=== PATIENT | male | born 1970 | race Hispanic/Latino ===

== ENCOUNTER 2020-10-01 15:09 | Emergency (ER) | payer SELFPAY ==
[~2020-10-01] VITALS: Ht 167.6 cm; Wt 113.6 kg
[2020-10-01] MEDS ORDERED: PREDNISONE20 MG PO (16:57)
[2020-10-01] MEDS ORDERED: BENADRYL 50MG C50 MG PO (16:57)
[2020-10-01] MEDS ORDERED: PEPCID20 MG PO (16:57)
[2020-10-01 17:30] VITALS: BP 158/77
== END 2020-10-01 17:30 | disposition home or self-care (01) | DRG 918 ==
LOC: ED 15:09
DX: T63.461A Toxic effect of venom of wasps, accidental (unintentional), initial encounter (principal); I10 Essential (primary) hypertension

== ENCOUNTER 2020-10-04 18:08 | Emergency (ER) | payer SELFPAY ==
[~2020-10-04] VITALS: Ht 167.6 cm; Wt 100.0 kg
[~2020-10-04 18:08] MED LIST: BENADRYL 50MG C50 MG PO; PEPCID20 MG PO; PREDNISONE20 MG PO
[2020-10-04] MEDS ORDERED: METOPROLOL100 M1 PO (20:04)
[2020-10-04 20:26] LABS: ALBUMIN 3.8 g/dL (3.2-5.0); ALKALINE PHOSPHATASE 133 u/l (38-126); ANION GAP 12 (6-22 (CALC)); BILIRUBIN, TOTAL 0.3 mg/dL (0.0-1.4); BUN 21 mg/dL (9-20); BUN/CREATININE RATIO 19 (12-20 (CALC)); CARBON DIOXIDE 27 mmol/l (22-30); CHLORIDE 104 mmol/l (95-108); CREATININE 1.1 mg/dL (0.7-1.3); GFR > 60 ML/MIN (>=60 (CALC)); GFR FOR AFR.AMER. > 60 ML/MIN (>=60 (CALC)); POTASSIUM 3.9 mmol/l (3.5-5.1); SGOT/AST 31 u/l (17-59); SODIUM 138 mmol/l (137-146); TOTAL PROTEIN 6.9 g/dL (6.3-8.2)
[2020-10-04 20:28] LABS: HEMATOCRIT 43.1 % (39.0-50.0); HEMOGLOBIN 14.1 g/dl (14.0-18.0); MEAN CELL VOLUME 87.8 fL CALC (80.0-100.0); MEAN CORPUSCULAR HGB 28.7 pG CALC (26.0-32.0); RED BLOOD COUNT 4.91 mill/uL (4.70-6.10)
[2020-10-04 20:29] LABS: BASO% 0 % (0-3); EOS% 0 % (0-8); LYMPH% 35 % (15-41); MEAN CORPUSCULAR HGB CONC 32.7 g/dL CAL (32.0-36.0); MONO% 8 % (2-13); NEUT% 57 % (42-76); PLATELET COUNT 182 thou/uL (130-400); RED CELL DISTRI WIDTH 12.9 % (11.5-15.5)
[2020-10-04 20:38] LABS: MYOGLOBIN 51 ng/mL (0 - 121)
[2020-10-04 20:58] LABS: URINE BILIRUBIN - DIPSTICK NEGATIVE (NEGATIVE); URINE BLOOD DIPSTICK NEGATIVE (NEGATIVE); URINE COLOR YELLOW; URINE GLUCOSE - DIPSTICK NEGATIVE (NEGATIVE); URINE KETONE NEGATIVE (NEGATIVE); URINE LEUK ESTERASE NEGATIVE (NEGATIVE); URINE NITRITE - DIPSTICK NEGATIVE (Negative); URINE PH 5.5 (4.5-8.0); URINE PROTEIN - DIPSTICK NEGATIVE (NEG-TRACE); URINE SPECIFIC GRAVITY 1.025; URINE UROBILINOGEN - DIPSTICK 0.2 E.U./dL (0.2)
[2020-10-04 21:49] VITALS: BP 165/70
== END 2020-10-04 21:31 | disposition left against medical advice (07) | DRG 918 ==
LOC: ED 18:08
PROVIDERS: Emergency Medicine
DX: T63.461A Toxic effect of venom of wasps, accidental (unintentional), initial encounter (principal); R94.31 Abnormal electrocardiogram [ECG] [EKG]; I10 Essential (primary) hypertension; Z91.19 Patient's noncompliance with other medical treatment and regimen

== ENCOUNTER 2020-10-22 19:23 | Emergency (ER) | payer SELFPAY ==
[~2020-10-22] VITALS: Ht 167.6 cm; Wt 116.0 kg
[~2020-10-22 19:23] MED LIST changes: +METOPROLOL100 M1 PO
[2020-10-22] MEDS ORDERED: FISH OIL1000 MG PO (19:46)
[2020-10-22] MEDS ORDERED: OMEPRAZOLE10 MG PO (19:46)
[2020-10-22] MEDS ORDERED: NAPROXEN250 MG PO (19:50)
[2020-10-22] MEDS ORDERED: PREDNISONE1 MG PO (19:51)
[2020-10-22] MEDS ORDERED: MITIGARE0.6 MG PO (20:34)
[2020-10-22 20:40] VITALS: BP 165/71
== END 2020-10-22 21:16 | disposition home or self-care (01) | DRG 554 ==
LOC: ED 19:23
DX: M10.9 Gout, unspecified (principal); I10 Essential (primary) hypertension; K21.9 Gastro-esophageal reflux disease without esophagitis; Z87.11 Personal history of peptic ulcer disease

== ENCOUNTER 2020-10-23 02:51 | Observation (INO) | payer SELFPAY ==
[~2020-10-23] VITALS: Ht 167.6 cm; Wt 114.0 kg
[~2020-10-23 02:51] MED LIST changes: +FISH OIL1000 MG PO; +MITIGARE0.6 MG PO; +NAPROXEN250 MG PO; +OMEPRAZOLE10 MG PO; +PREDNISONE1 MG PO
--- NOTE | 2020-10-23 02:55 | NUR ---
PT AMBULATORY FROM WR TO EX 12. NAD.
[2020-10-23 03:32] LABS: HEMATOCRIT 44.5 % (39.0-50.0); HEMOGLOBIN 14.2 g/dl (14.0-18.0); IMMATURE GRANULOCYTES 1.2 % (0.0-5.0); MEAN CELL VOLUME 86.4 fL CALC (80.0-100.0); MEAN CORPUSCULAR HGB 27.6 pG CALC (26.0-32.0); MEAN CORPUSCULAR HGB CONC 31.9 g/dL CAL (32.0-36.0); NEUT# 8.65 thou/uL (1.82-7.42); RED BLOOD COUNT 5.15 mill/uL (4.70-6.10); RED CELL DISTRI WIDTH 13.5 % (11.5-15.5)
[2020-10-23 03:39] LABS: ALBUMIN 4.1 g/dL (3.2-5.0); ALKALINE PHOSPHATASE 189 u/l (38-126); AMYLASE 52 u/l (30-110); ANION GAP 14 (6-22 (CALC)); BILIRUBIN, TOTAL 0.3 mg/dL (0.0-1.4); BUN 14 mg/dL (9-20); BUN/CREATININE RATIO 12 (12-20 (CALC)); CARBON DIOXIDE 26 mmol/l (22-30); CHLORIDE 104 mmol/l (95-108); CREATININE 1.1 mg/dL (0.7-1.3); GFR > 60 ML/MIN (>=60 (CALC)); GFR FOR AFR.AMER. > 60 ML/MIN (>=60 (CALC)); LIPASE 106 u/l (23-300); POTASSIUM 4.6 mmol/l (3.5-5.1); SGOT/AST 26 u/l (17-59); SODIUM 138 mmol/l (137-146)
[2020-10-23 03:45] LABS: URINE BILIRUBIN - DIPSTICK NEGATIVE (NEGATIVE); URINE BLOOD DIPSTICK NEGATIVE (NEGATIVE); URINE COLOR YELLOW; URINE GLUCOSE - DIPSTICK >=1000 mg/dL (NEGATIVE); URINE KETONE TRACE mg/dL (NEGATIVE); URINE LEUK ESTERASE NEGATIVE (NEGATIVE); URINE NITRITE - DIPSTICK NEGATIVE (Negative); URINE PH 6.5 (4.5-8.0); URINE PROTEIN - DIPSTICK NEGATIVE (NEG-TRACE); URINE SPECIFIC GRAVITY 1.015; URINE UROBILINOGEN - DIPSTICK 0.2 E.U./dL (0.2)
--- NOTE | 2020-10-23 03:47 | NUR ---
W/P/D SKIN SR NO ST T CHANGES NO ECTOPY S/S RESOLVED INSIDE UPHOLSTERER TO ER.
[2020-10-23 03:51] LABS: MYOGLOBIN 43 ng/mL (0 - 121)
--- NOTE | 2020-10-23 04:00 | NUR ---
SR NO ST T CHANGES NO ECTOPY W/P/D SKIN NO C/O PAIN FROM ANY SOURCE.NO SWEATS NO NAUSEA OR REGURG S/S
--- NOTE | 2020-10-23 05:01 | NUR ---
ASLEEP W/P/D SKIN SR NO ST T CHANGES NO ECTOPY.
--- NOTE | 2020-10-23 06:18 | NUR ---
W/P/D SKIN NO CP NO NAUSEA SR NO ST T CHANGES NO ECTOPY
--- NOTE | 2020-10-23 06:35 | NUR ---
PHONE REPORT TO NURSE CURRY ON MS
--- NOTE | 2020-10-23 06:40 | NUR ---
PT TRANSPORTED TO [place] RM 277 VIA IN STABLE CONDITION
--- NOTE | 2020-10-23 06:49 | NUR ---
RECEIVED REPORT FROM AG IN ER @ 1465, PT ARRIVED TO UNIT @ 0647 VIA WHEELCHAIR IN STABLE CONDITION WITH NO S/SX OF DISTRESS OBSERVED.
[2020-10-23 07:48] VITALS: BP 185/87
[2020-10-23 10:37] VITALS: BP 185/87
--- NOTE | 2020-10-23 14:00 | NUR ---
PATIENT D/C AT THIS TIME. PATIENT VERBALIZES UNDERSTANDING OF D/C INSTRUCTIONS AT THIS TIME. DENIES ANY NEEDS. ADVISED TO F/U WITH PROVIDER IN 1 WEEK AND CONTINUE HOME MEDS.
--- NOTE | 2020-10-23 14:09 | NUR ---
Discharge instructions given. Patient verbalizes understanding of same. Discharged in condition via Wheelchair to Home with *Other. All belongings sent with pt.
== END 2020-10-23 14:10 | disposition home or self-care (01) | DRG 313 ==
LOC: ED 02:51 → ED-I 05:52 → ED 06:05 → MS2 06:06
PROVIDERS: Emergency Medicine; ADMIT Internal Medicine; ATTEND Internal Medicine
DX: R07.2 Precordial pain (principal); R94.31 Abnormal electrocardiogram [ECG] [EKG]; I10 Essential (primary) hypertension; K21.9 Gastro-esophageal reflux disease without esophagitis; K29.60 Other gastritis without bleeding; R73.03 Prediabetes; M10.9 Gout, unspecified; Z87.11 Personal history of peptic ulcer disease; Z79.1 Long term (current) use of non-steroidal anti-inflammatories (NSAID); Z79.899 Other long term (current) drug therapy; Z20.828 Contact with and (suspected) exposure to other viral communicable diseases
CPT/HCPCS: G0378; S0164

== ENCOUNTER 2020-10-28 20:29 | Emergency (ER) | payer SELFPAY ==
[~2020-10-28] VITALS: Ht 167.6 cm; Wt 113.0 kg
[2020-10-28] MEDS ORDERED: ASPIRIN81 MG PO (20:45)
[2020-10-28] MEDS ORDERED: LISINOPRIL20 MG PO (20:45)
[2020-10-28] MEDS ORDERED: HYDROCHLOROTH12.5 MG PO (20:46)
[2020-10-28 21:38] LABS: HEMATOCRIT 45.9 % (39.0-50.0); HEMOGLOBIN 14.8 g/dl (14.0-18.0); IMMATURE GRANULOCYTES 1.4 % (0.0-5.0); MEAN CELL VOLUME 86.6 fL CALC (80.0-100.0); MEAN CORPUSCULAR HGB 27.9 pG CALC (26.0-32.0); MEAN CORPUSCULAR HGB CONC 32.2 g/dL CAL (32.0-36.0); NEUT# 5.91 thou/uL (1.82-7.42); RED BLOOD COUNT 5.3 mill/uL (4.70-6.10); RED CELL DISTRI WIDTH 14.2 % (11.5-15.5)
[2020-10-28 21:40] LABS: ALBUMIN 4.2 g/dL (3.2-5.0); CREATININE 1.5 mg/dL (0.7-1.3); POTASSIUM 4.2 mmol/l (3.5-5.1); TOTAL PROTEIN 7.2 g/dL (6.3-8.2)
[2020-10-28 21:44] LABS: BILIRUBIN, TOTAL 0.7 mg/dL (0.0-1.4)
[2020-10-28] MEDS ORDERED: COLCHICINE0.6 M2 PO (21:57)
[2020-10-28 22:04] VITALS: BP 101/67
== END 2020-10-28 22:04 | disposition home or self-care (01) | DRG 305 ==
LOC: ED 20:29
PROVIDERS: Family Medicine
DX: I10 Essential (primary) hypertension (principal); R94.31 Abnormal electrocardiogram [ECG] [EKG]; M10.9 Gout, unspecified; R73.03 Prediabetes; K21.9 Gastro-esophageal reflux disease without esophagitis; Z87.11 Personal history of peptic ulcer disease

== ENCOUNTER 2020-11-08 19:46 | Emergency (ER) | payer SELFPAY ==
[~2020-11-08] VITALS: Ht 167.6 cm; Wt 112.0 kg
[~2020-11-08 19:46] MED LIST changes: +ASPIRIN81 MG PO; +COLCHICINE0.6 M2 PO; +HYDROCHLOROTH12.5 MG PO; +LISINOPRIL20 MG PO
[2020-11-08 20:57] LABS: HEMATOCRIT 43.5 % (39.0-50.0); IMMATURE GRANULOCYTES 1.6 % (0.0-5.0); MEAN CELL VOLUME 86.8 fL CALC (80.0-100.0); MEAN CORPUSCULAR HGB 27.9 pG CALC (26.0-32.0); MEAN CORPUSCULAR HGB CONC 32.2 g/dL CAL (32.0-36.0); NEUT# 4.81 thou/uL (1.82-7.42); RED BLOOD COUNT 5.01 mill/uL (4.70-6.10); RED CELL DISTRI WIDTH 13.7 % (11.5-15.5)
[2020-11-08 21:13] LABS: ALKALINE PHOSPHATASE 141 u/l (38-126); ANION GAP 11 (6-22 (CALC)); BUN 26 mg/dL (9-20); BUN/CREATININE RATIO 18 (12-20 (CALC)); CARBON DIOXIDE 27 mmol/l (22-30); CHLORIDE 104 mmol/l (95-108); CREATININE 1.5 mg/dL (0.7-1.3); GFR 50 ML/MIN (>=60 (CALC)); GFR FOR AFR.AMER. 60 ML/MIN (>=60 (CALC)); POTASSIUM 3.9 mmol/l (3.5-5.1); SGOT/AST 32 u/l (17-59); SODIUM 138 mmol/l (137-146); TOTAL PROTEIN 7.1 g/dL (6.3-8.2)
[2020-11-08 21:19] LABS: BILIRUBIN, TOTAL 0.3 mg/dL (0.0-1.4)
[2020-11-08 21:25] LABS: MYOGLOBIN 90 ng/mL (0 - 121)
[2020-11-08 21:55] VITALS: BP 128/66
== END 2020-11-08 21:55 | disposition home or self-care (01) | DRG 880 ==
LOC: ED 19:46
PROVIDERS: Emergency Medicine
DX: F41.9 Anxiety disorder, unspecified (principal); R94.31 Abnormal electrocardiogram [ECG] [EKG]; N28.9 Disorder of kidney and ureter, unspecified; T50.2X5A Adverse effect of carbonic-anhydrase inhibitors, benzothiadiazides and other diuretics, initial encounter; I10 Essential (primary) hypertension; R73.03 Prediabetes; M10.9 Gout, unspecified; K21.9 Gastro-esophageal reflux disease without esophagitis; Z87.11 Personal history of peptic ulcer disease

== ENCOUNTER 2020-11-19 08:32 | Emergency (ER) | payer SELFPAY ==
[~2020-11-19] VITALS: Ht 167.6 cm; Wt 100.0 kg
[2020-11-19 09:18] VITALS: BP 154/68
== END 2020-11-19 09:18 | disposition home or self-care (01) | DRG 880 ==
LOC: ED 08:32
DX: F41.9 Anxiety disorder, unspecified (principal); I10 Essential (primary) hypertension; R73.03 Prediabetes; M10.9 Gout, unspecified; K21.9 Gastro-esophageal reflux disease without esophagitis; Z87.11 Personal history of peptic ulcer disease

== ENCOUNTER 2020-11-20 06:39 | Emergency (ER) | payer SELFPAY ==
[~2020-11-20] VITALS: Ht 167.6 cm; Wt 110.0 kg
[2020-11-20 07:28] VITALS: BP 144/76
== END 2020-11-20 07:32 | disposition home or self-care (01) | DRG 880 ==
LOC: ED 06:39
DX: F41.9 Anxiety disorder, unspecified (principal); I10 Essential (primary) hypertension; R73.03 Prediabetes; M10.9 Gout, unspecified; K21.9 Gastro-esophageal reflux disease without esophagitis; Z87.11 Personal history of peptic ulcer disease

== ENCOUNTER 2020-11-22 19:39 | Emergency (ER) | payer SELFPAY ==
[~2020-11-22] VITALS: Ht 167.6 cm; Wt 112.0 kg
[2020-11-22] MEDS ORDERED: OMEPRAZOLE DR40 MG PO (20:41)
[2020-11-22 20:56] VITALS: BP 112/87
== END 2020-11-22 20:56 | disposition home or self-care (01) | DRG 880 ==
LOC: ED 19:39
DX: F41.9 Anxiety disorder, unspecified (principal); I10 Essential (primary) hypertension; R73.03 Prediabetes; M10.9 Gout, unspecified; K21.9 Gastro-esophageal reflux disease without esophagitis; Z87.11 Personal history of peptic ulcer disease

== ENCOUNTER 2020-12-30 02:07 | Emergency (ER) | payer SELFPAY ==
[~2020-12-30 02:07] MED LIST changes: +OMEPRAZOLE DR40 MG PO
== END 2020-12-30 02:53 | disposition left against medical advice (07) | DRG 951 ==
LOC: ED 02:07 → LWOBS 02:33
DX: Z53.21 Procedure and treatment not carried out due to patient leaving prior to being seen by health care provider (principal)

== ENCOUNTER 2021-01-04 03:08 | Emergency (ER) | payer SELFPAY ==
[~2021-01-04] VITALS: Ht 167.6 cm; Wt 104.5 kg
[2021-01-04 03:25] VITALS: BP 165/86
== END 2021-01-04 04:42 | disposition left against medical advice (07) | DRG 153 ==
LOC: ED 03:08
DX: J02.9 Acute pharyngitis, unspecified (principal); I10 Essential (primary) hypertension; R73.03 Prediabetes; M10.9 Gout, unspecified; K21.9 Gastro-esophageal reflux disease without esophagitis; Z87.11 Personal history of peptic ulcer disease; Z20.822 Contact with and (suspected) exposure to COVID-19

== ENCOUNTER 2021-01-12 04:53 | Emergency (ER) | payer SELFPAY ==
[~2021-01-12] VITALS: Ht 167.6 cm; Wt 113.0 kg
[2021-01-12 05:40] VITALS: BP 134/81
== END 2021-01-12 05:40 | disposition home or self-care (01) | DRG 392 ==
LOC: ED 04:53
DX: R11.2 Nausea with vomiting, unspecified (principal); F41.9 Anxiety disorder, unspecified; K29.70 Gastritis, unspecified, without bleeding; K21.9 Gastro-esophageal reflux disease without esophagitis; I10 Essential (primary) hypertension; M10.9 Gout, unspecified; R73.03 Prediabetes; Z87.11 Personal history of peptic ulcer disease

== ENCOUNTER 2021-01-23 00:51 | Emergency (ER) | payer SELFPAY | END 2021-01-23 01:30 | disposition left against medical advice (07) | DRG 951 | LOC: ED 00:51 → LWOBS 01:30 | DX: Z53.21 Procedure and treatment not carried out due to patient leaving prior to being seen by health care provider (principal) ==

== ENCOUNTER 2021-11-05 09:22 | Emergency (ER) | payer SELFPAY ==
[~2021-11-05] VITALS: Ht 167.6 cm; Wt 100.0 kg
[2021-11-05 10:04] LABS: HEMATOCRIT 40.5 % (39.0-50.0); HEMOGLOBIN 13.9 g/dl (14.0-18.0); IMMATURE GRANULOCYTES 1.4 % (0.0-5.0); MEAN CELL VOLUME 84.6 fL CALC (80.0-100.0); MEAN CORPUSCULAR HGB CONC 34.3 g/dL CAL (32.0-36.0); NEUT# 3.97 thou/uL (1.82-7.42); RED BLOOD COUNT 4.79 mill/uL (4.70-6.10); RED CELL DISTRI WIDTH 13.8 % (11.5-15.5)
[2021-11-05 10:18] LABS: ALBUMIN 3.8 g/dL (3.2-5.0); ALKALINE PHOSPHATASE 126 u/l (38-126); ANION GAP 10 (6-22 (CALC)); BUN 16 mg/dL (9-20); BUN/CREATININE RATIO 15 (12-20 (CALC)); CARBON DIOXIDE 27 mmol/l (22-30); CHLORIDE 102 mmol/l (95-108); CREATININE 1.1 mg/dL (0.7-1.3); GFR > 60 ML/MIN (>=60 (CALC)); GFR FOR AFR.AMER. > 60 ML/MIN (>=60 (CALC)); POTASSIUM 3.3 mmol/l (3.5-5.1); SGOT/AST 28 u/l (17-59); SODIUM 136 mmol/l (137-146)
[2021-11-05 10:21] LABS: BILIRUBIN, TOTAL 0.7 mg/dL (0.0-1.4)
[2021-11-05 10:51] LABS: TSH, 3RD GENERATION 1.61 uIU/mL (0.47 - 4.68)
[2021-11-05] MEDS ORDERED: VOLTAREN1%GEL TOP (11:13)
[2021-11-05 11:26] VITALS: BP 152/81
== END 2021-11-05 11:12 | disposition home or self-care (01) | DRG 556 ==
LOC: ED 09:22
PROVIDERS: Family Medicine
DX: M25.562 Pain in left knee (principal); M25.561 Pain in right knee; R53.83 Other fatigue; I10 Essential (primary) hypertension; R73.03 Prediabetes; E66.9 Obesity, unspecified; M10.9 Gout, unspecified; K21.9 Gastro-esophageal reflux disease without esophagitis; Z68.35 Body mass index [BMI] 35.0-35.9, adult; Z87.11 Personal history of peptic ulcer disease

== ENCOUNTER 2021-11-11 03:27 | Emergency (ER) | payer SELFPAY ==
[~2021-11-11] VITALS: Ht 167.6 cm; Wt 104.6 kg
[~2021-11-11 03:27] MED LIST changes: +VOLTAREN1%GEL TOP
[2021-11-11] MEDS ORDERED: PREDNISONE50 MG PO (04:03)
[2021-11-11] MEDS ORDERED: COLCHICINE0.6 M2 PO (04:03)
[2021-11-11 04:53] VITALS: BP 178/86
== END 2021-11-11 05:03 | disposition home or self-care (01) | DRG 554 ==
LOC: ED 03:27
DX: M10.031 Idiopathic gout, right wrist (principal); I10 Essential (primary) hypertension; R73.03 Prediabetes; Z87.11 Personal history of peptic ulcer disease

== ENCOUNTER 2021-11-24 14:54 | Emergency (ER) | payer SELFPAY ==
[~2021-11-24] VITALS: Ht 167.6 cm; Wt 100.0 kg
[~2021-11-24 14:54] MED LIST changes: +PREDNISONE50 MG PO
[2021-11-24] MEDS ORDERED: TORADOL PO (16:25)
[2021-11-24 18:10] VITALS: BP 136/72
== END 2021-11-24 18:45 | disposition home or self-care (01) | DRG 554 ==
LOC: ED 14:54
DX: M10.021 Idiopathic gout, right elbow (principal); I10 Essential (primary) hypertension; K21.9 Gastro-esophageal reflux disease without esophagitis; R73.03 Prediabetes